=== PATIENT | male | born 1950 | race Caucasian/White ===

== ENCOUNTER → 2017-03-31 | Outpatient (CLI) | payer MEDICARE ==
[~2017-03-31] MED LIST: ASPI325T4 PO; COREG PO; GABAPENTIN PO; LISI1TAB7 PO; MELO-184 PO; NORCO; PLAVIX PO; REGADENOSON 0.4 MG/5 ML SYRINGE ONE; SIMVASTATIN PO; TAMS-11 PO; TRAMADOL PO; ZOCOR
== END | disposition home or self-care (01) ==
LOC: CFH 12:07
PROVIDERS: ATTEND Internal Medicine Cardiovascular Disease
DX: I10 Essential (primary) hypertension (principal); I25.10 Atherosclerotic heart disease of native coronary artery without angina pectoris; Z95.5 Presence of coronary angioplasty implant and graft
CPT/HCPCS: 78452; 93017; 93306; A9502; J2785

== ENCOUNTER 2017-04-29 06:48 | Day surgery (SDC) | payer MEDICARE ==
[~2017-04-29] VITALS: Ht 167.6 cm; Wt 97.9 kg
[~2017-04-29 06:48] MED LIST changes: +ASPI325T17 PO; -ASPI325T4 PO; -MELO-184 PO; +MELO15TA24 PO; -REGADENOSON 0.4 MG/5 ML SYRINGE ONE
[2017-04-29] MEDS ORDERED: ASPI-496 PO (07:24)
[2017-04-29] MEDS ORDERED: CARI250T PO (07:24)
[2017-04-29] MEDS ORDERED: HYDR-3240 PO (07:24)
[2017-04-29 07:25] VITALS: BP 138/79
[2017-04-29] MEDS: LACTATED RINGERS 1,000 ML IV SCH ×2 (07:49→07:50)
[2017-04-29 08:07] LABS: ASPARTATE AMINO TRANSFERASE 21 U/L (15-37); BLOOD UREA NITROGEN 23 mg/dL (7-18)
[2017-04-29] MEDS ORDERED: MIDAZOLAM 1 MG/ML, 2ML ONE (09:26)
[2017-04-29] MEDS ORDERED: FENTANYL PF 100 MCG/2ML ONE (09:27)
[2017-04-29] MEDS ORDERED: PHENYLEPHRINE 10 MG/ML ONE (09:30)
[2017-04-29] MEDS ORDERED: ONDANSETRON 2MG/ML, 2ML ONE (09:30)
[2017-04-29] MEDS ORDERED: GLYCOPYRROLATE 0.2MG/1ML ONE (09:30)
[2017-04-29] MEDS ORDERED: PROPOFOL 10 MG/ML, 20ML ONE (09:30)
[2017-04-29] MEDS ORDERED: SUCCINYLCHOLINE 20 MG/ML, 10ML ONE (09:30)
[2017-04-29] MEDS ORDERED: ROCURONIUM 10 MG/ML ONE (09:30)
[2017-04-29] MEDS ORDERED: hydrALAzine 20 MG/ML, 1ML IV PRN (10:00)
[2017-04-29] MEDS ORDERED: ALBUTEROL/IPRATROPIUM 2.5MG/0.5MG, 3 ML NPPB PRN (10:00)
[2017-04-29] MEDS ORDERED: MEPERIDINE/PF 25MG/0.5ML IVPush PRN (10:00)
[2017-04-29] MEDS ORDERED: MIDAZOLAM 1 MG/ML, 2ML IV PRN (10:00)
[2017-04-29] MEDS ORDERED: PROMETHAZINE 25 MG/ML, 1ML IV PRN (10:00)
[2017-04-29] MEDS ORDERED: HYDROmorphone 1 MG/ML, 1ML IV PRN (10:00)
[2017-04-29] MEDS ORDERED: ACETAMINOPHEN 325 MG TABLET PO PRN (10:00)
[2017-04-29] MEDS ORDERED: ONDANSETRON 2MG/ML, 2ML IVPush PRN (10:00)
[2017-04-29] MEDS ORDERED: OXYcodone 5 MG/5 ML ORAL.SOL UDC PO PRN (10:00)
[2017-04-29] MEDS ORDERED: LABETALOL 5MG/ML, 20ML IV PRN (10:00)
[2017-04-29] MEDS ORDERED: FENTANYL PF 100 MCG/2ML IV PRN (10:00)
== END 2017-04-29 13:15 ==
LOC: OUT 06:48
PROVIDERS: ATTEND Internal Medicine Geriatric Medicine
DX: D13.2 Benign neoplasm of duodenum (principal); K31.7 Polyp of stomach and duodenum; K31.89 Other diseases of stomach and duodenum; I25.10 Atherosclerotic heart disease of native coronary artery without angina pectoris; I10 Essential (primary) hypertension; E78.5 Hyperlipidemia, unspecified; N40.0 Benign prostatic hyperplasia without lower urinary tract symptoms
CPT/HCPCS: 36415; 43239; 43251; 43259; 80053; 88304; 88305; 93005; J0330; J2250; J2370; J2405; J2704; J3010; J7120; J3490

== ENCOUNTER → 2017-05-08 | Outpatient (CLI) | payer MEDICARE ==
[~2017-05-08] MED LIST changes: +ASPI-496 PO; +CARI250T PO; +HYDR-3240 PO; +OMNIPAQUE 350 MG/ML, 100ML BOTTLE ONE
== END | disposition home or self-care (01) ==
LOC: CFH 11:08
PROVIDERS: ATTEND Internal Medicine Geriatric Medicine
DX: D12.6 Benign neoplasm of colon, unspecified (principal); K86.89 Other specified diseases of pancreas
CPT/HCPCS: 74170; Q9967

== ENCOUNTER 2017-07-29 11:37 | Day surgery (SDC) | payer MEDICARE ==
[~2017-07-29] VITALS: Ht 167.6 cm; Wt 97.4 kg
[~2017-07-29 11:37] MED LIST changes: +BACITRACIN OINT 500U/GM, 15 GM ONE; +EPINEPHRINE 1 MG/ML, 1ML ONE; +EPINEPHRINE TOPICAL SOLN 1 MG/ML, 30ML ONE; +FLUORESCEIN OPHTHALMIC 1 MG STRIP ONE; -OMNIPAQUE 350 MG/ML, 100ML BOTTLE ONE; +OXYMETAZOLINE NASAL SPRAY 0.05%, 15ML ONE
[2017-07-29] MEDS ORDERED: LACTATED RINGERS 1,000 ML IV SCH (12:18)
[2017-07-29 12:23] VITALS: BP 171/93
[2017-07-29] MEDS ORDERED: CARV25TA12 PO (12:29)
[2017-07-29] MEDS ORDERED: GABA600T2 PO (12:29)
[2017-07-29] MEDS ORDERED: CLOP75TA52 PO (12:29)
[2017-07-29] MEDS ORDERED: TRAM50TA2 PO (12:29)
[2017-07-29] MEDS ORDERED: SIMV40TA3 PO (12:29)
[2017-07-29] MEDS ORDERED: PLEASE ENTER HEIGHT AND WEIGHT MC SCH (12:30)
[2017-07-29 13:01] LABS: ASPARTATE AMINO TRANSFERASE 21 U/L (15-37); BLOOD UREA NITROGEN 19 mg/dL (7-18)
[2017-07-29] MEDS ORDERED: PROPOFOL 10 MG/ML, 20ML ONE (14:09)
[2017-07-29] MEDS ORDERED: MIDAZOLAM 1 MG/ML, 2ML ONE (14:09)
[2017-07-29] MEDS ORDERED: METOPROLOL 1 MG/ML, 5ML IV PRN (14:30)
[2017-07-29] MEDS ORDERED: OXYcodone 5 MG/5 ML ORAL.SOL UDC PO PRN (14:30)
[2017-07-29] MEDS ORDERED: LABETALOL 5MG/ML, 20ML IV PRN (14:30)
[2017-07-29] MEDS ORDERED: PROMETHAZINE 25 MG/ML, 1ML IV PRN (14:30)
[2017-07-29] MEDS ORDERED: HYDROcodone/APAP 7.5-325MG/15ML UDC PO PRN (14:30)
[2017-07-29] MEDS ORDERED: MEPERIDINE/PF 25MG/0.5ML IVPush PRN (14:30)
[2017-07-29] MEDS ORDERED: ONDANSETRON 2MG/ML, 2ML IVPush PRN (14:30)
[2017-07-29] MEDS ORDERED: hydrALAzine 20 MG/ML, 1ML IV PRN (14:30)
[2017-07-29] MEDS ORDERED: HYDROmorphone 1 MG/ML, 1ML IV PRN (14:30)
[2017-07-29] MEDS ORDERED: MIDAZOLAM 1 MG/ML, 2ML IV PRN (14:30)
[2017-07-29] MEDS ORDERED: EPHEDRINE 50 MG/ML, 1ML IVPush PRN (14:30)
[2017-07-29] MEDS ORDERED: FENTANYL PF 100 MCG/2ML IV PRN (14:30)
[2017-07-29] MEDS ORDERED: METOCLOPRAMIDE 5 MG/ML, 2ML IV PRN (14:30)
[2017-07-29] MEDS ORDERED: ACETAMINOPHEN 325 MG TABLET PO PRN (14:30)
[2017-07-29] MEDS ORDERED: ALBUTEROL SULFATE 2.5 MG/3 ML NPPB PRN (14:30)
== END 2017-07-29 16:45 ==
LOC: OUT 11:37
PROVIDERS: ATTEND Internal Medicine Geriatric Medicine
DX: D13.6 Benign neoplasm of pancreas (principal); I25.2 Old myocardial infarction; I10 Essential (primary) hypertension
CPT/HCPCS: 36415; 43275; 43278; 74328; 80053; 88305; C1769; J2250; J2704; J7120; J0171

== ENCOUNTER 2017-10-14 06:51 | Day surgery (SDC) | payer MEDICARE ==
[~2017-10-14] VITALS: Ht 167.6 cm; Wt 97.7 kg
[~2017-10-14 06:51] MED LIST changes: -BACITRACIN OINT 500U/GM, 15 GM ONE; +CARV25TA12 PO; +CLOP75TA52 PO; -EPINEPHRINE 1 MG/ML, 1ML ONE; -EPINEPHRINE TOPICAL SOLN 1 MG/ML, 30ML ONE; -FLUORESCEIN OPHTHALMIC 1 MG STRIP ONE; +GABA600T2 PO; -OXYMETAZOLINE NASAL SPRAY 0.05%, 15ML ONE; +SIMV40TA3 PO; +TRAM50TA2 PO
[2017-10-14 07:52] VITALS: BP 145/87
[2017-10-14] MEDS ORDERED: LACTATED RINGERS 1,000 ML IV SCH (07:57)
[2017-10-14] MEDS ORDERED: HYDR-882 PO (08:00)
[2017-10-14] MEDS ORDERED: LIDOCAINE 1%, 2ML SQ PRN (08:00)
[2017-10-14] MEDS ORDERED: LIDOCAINE-MPF 1%, 2ML ONE (08:04)
[2017-10-14] MEDS ORDERED: DEXL60CA2 PO (08:22)
[2017-10-14] MEDS ORDERED: PROPOFOL 10 MG/ML, 20ML ONE ×3 (08:56→09:06)
[2017-10-14] MEDS ORDERED: LIDOCAINE-MPF 2% ,5ML ONE (08:56)
[2017-10-14] MEDS ORDERED: FENTANYL PF 100 MCG/2ML IV PRN (09:00)
[2017-10-14] MEDS ORDERED: HYDROcodone/APAP 7.5-325MG/15ML UDC PO PRN (09:00)
[2017-10-14] MEDS ORDERED: OXYcodone 5 MG/5 ML ORAL.SOL UDC PO PRN (09:00)
[2017-10-14] MEDS ORDERED: ONDANSETRON 2MG/ML, 2ML IVPush PRN (09:00)
[2017-10-14] MEDS ORDERED: MEPERIDINE/PF 25MG/0.5ML IVPush PRN (09:00)
[2017-10-14] MEDS ORDERED: morphine SULFATE 10 MG/ML, 1ML IV PRN (09:00)
== END 2017-10-14 11:10 ==
LOC: OUT 06:51
PROVIDERS: ATTEND Internal Medicine
DX: K83.8 Other specified diseases of biliary tract (principal); I25.10 Atherosclerotic heart disease of native coronary artery without angina pectoris; I25.2 Old myocardial infarction; Z98.61 Coronary angioplasty status; Z90.49 Acquired absence of other specified parts of digestive tract; Z80.0 Family history of malignant neoplasm of digestive organs
CPT/HCPCS: 43239; 43259; 88305; 93005; J2704; J3490; J7120

== ENCOUNTER 2018-01-14 01:26 | Observation (INO) | payer MEDICARE ==
[~2018-01-14] VITALS: Ht 167.6 cm; Wt 99.4 kg
[~2018-01-14 01:26] MED LIST changes: +DEXL60CA2 PO; +HYDR-882 PO
[2018-01-14] MEDS ORDERED: LABETALOL 5MG/ML, 20ML ONE (01:49)
[2018-01-14] MEDS ORDERED: NITROGLYCERIN OINT 2%, 1GM TP ONE ×2 (01:49→02:00)
[2018-01-14] MEDS ORDERED: MORPHINE SULFATE 4 MG/ML, 1ML ONE (01:49)
[2018-01-14] MEDS: LABETALOL 5MG/ML, 20ML IVPush ONE ×2 (01:51→02:00)
[2018-01-14] MEDS ORDERED: SODIUM CHLORIDE FLUSH 10ML SYR IVF ONE (02:00)
[2018-01-14] MEDS ORDERED: hydrALAzine 20 MG/ML, 1ML IV ONE (02:00)
[2018-01-14] MEDS ORDERED: MORPHINE SULFATE 4 MG/ML, 1ML IVPush PRN (02:00)
[2018-01-14] MEDS ORDERED: hydrALAzine 20 MG/ML, 1ML ONE (02:00)
[2018-01-14 02:06] LABS: BASOPHILS # (AUTO) 0.03 x10^3/uL (0-0.1); BASOPHILS % (AUTO) 1 % (0-1); EOSINOPHILS # (AUTO) 0.22 x10^3/uL (0-0.4); EOSINOPHILS % (AUTO) 3 % (1-7); LYMPHOCYTES # (AUTO) 2.18 x10^3/uL (1-3.4); LYMPHOCYTES % (AUTO) 31 % (22-44); MD NO; MEAN CORPUSCULAR HEMOGLOBIN 29.2 pg (27.5-34.5); MEAN CORPUSCULAR HGB CONC 34.3 g/dL (33.2-36.2); MEAN CORPUSCULAR VOLUME 85.2 fL (81-97); MEAN PLATELET VOLUME 9.4 fL (7.4-10.4); MONOCYTES # (AUTO) 0.66 x10^3/uL (0.2-0.8); MONOCYTES % (AUTO) 10 % (2-9); NEUTROPHILS # (AUTO) 3.87 x10^3/uL (1.8-6.8); NEUTROPHILS % (AUTO) 56 % (42-75); PLATELET COUNT 190 x10^3/uL (130-400); RED BLOOD COUNT 5.64 x10^6/uL (4.38-5.82); RED CELL DISTRIBUTION WIDTH 12.9 % (9.4-14.8)
[2018-01-14 02:11] LABS: INTERNATIONAL NORMALIZED RATIO 0.97 (0.93-1.1); PROTHROMBIN TIME 10.1 Seconds (9.6-11.5)
[2018-01-14 02:15] LABS: ALBUMIN 4.1 g/dL (3.4-5.0); ANION GAP 8 mmol/L (5-15); CALCIUM 10.4 mg/dL (8.5-10.1); CHLORIDE 100 mmol/L (98-107); CREATININE 1.33 mg/dL (0.7-1.3)
[2018-01-14 02:18] LABS: TROPONIN I < 0.015 ng/mL (0.000-0.045)
[2018-01-14 03:55] VITALS: BP 163/72
[2018-01-14] MEDS ORDERED: HYDROcodone/APAP 5/325 TABLET PO PRN (04:00)
[2018-01-14] MEDS ORDERED: NITROGLYCERIN 0.4 MG/SPRAY SL PRN (04:00)
[2018-01-14] MEDS ORDERED: ZOLPIDEM 5MG TABLET PO PRN (04:00)
[2018-01-14] MEDS ORDERED: LABETALOL 5MG/ML, 20ML IVPush PRN (04:00)
[2018-01-14] MEDS ORDERED: NITROGLYCERIN 0.4 MG BOTTLE (25 TABS) SL PRN (04:00)
[2018-01-14] MEDS ORDERED: hydrALAzine 20 MG/ML, 1ML IVPush PRN (04:00)
[2018-01-14 04:03] VITALS: BP 163/72
[2018-01-14] MEDS ORDERED: TEMPLATE NON-FORMULARY MED. (Carisoprodol** (Soma**) 250 MG) PO SCH (04:30)
[2018-01-14] MEDS ORDERED: CARISOPRODOL MC SCH (04:30)
[2018-01-14 08:22] LABS: TROPONIN I 0.025 ng/mL (0.000-0.045)
[2018-01-14 08:42] VITALS: BP 126/71
[2018-01-14] MEDS ORDERED: ASPIRIN 81 MG TABLET EC PO SCH (09:00)
[2018-01-14] MEDS ORDERED: HYDROCHLOROTHIAZIDE 25 MG TABLET PO SCH ×3 (09:00→09:25)
[2018-01-14] MEDS ORDERED: CLOPIDOGREL 75 MG TABLET PO SCH (09:00)
[2018-01-14] MEDS ORDERED: TAMSULOSIN 0.4 MG CAP.ER.24H PO SCH (09:00)
[2018-01-14] MEDS ORDERED: LISINOPRIL 20 MG TABLET PO SCH ×2 (09:00)
[2018-01-14] MEDS: GABAPENTIN 300 MG CAPSULE PO SCH ×2 (10:22→16:04)
[2018-01-14] MEDS ORDERED: REGADENOSON 0.4 MG/5 ML SYRINGE ONE (14:30)
[2018-01-14 16:13] VITALS: BP 158/76
[2018-01-14] MEDS ORDERED: CARVEDILOL 25 MG TABLET PO SCH (18:00)
[2018-01-14] MEDS ORDERED: PNEUMOCOCCAL 23 VACCINE IM-VACC ONE (19:00)
[2018-01-14] MEDS ORDERED: SIMVASTATIN 40 MG TABLET PO SCH (21:00)
[2018-01-14] MEDS ORDERED: CARISOPRODOL PO PRN (21:00)
== END 2018-01-14 19:40 | disposition home or self-care (01) ==
LOC: ED 02:55 → EDIP 02:56 → INTOOBSV 02:56 → 5SO 03:52
PROVIDERS: ADMIT Family Medicine; ATTEND Family Medicine
DX: R07.89 Other chest pain (principal); I16.0 Hypertensive urgency; I25.10 Atherosclerotic heart disease of native coronary artery without angina pectoris; E78.5 Hyperlipidemia, unspecified; N40.0 Benign prostatic hyperplasia without lower urinary tract symptoms; M51.9 Unspecified thoracic, thoracolumbar and lumbosacral intervertebral disc disorder; I11.0 Hypertensive heart disease with heart failure; I50.9 Heart failure, unspecified; E10.9 Type 1 diabetes mellitus without complications; I25.2 Old myocardial infarction; J44.9 Chronic obstructive pulmonary disease, unspecified; Z95.5 Presence of coronary angioplasty implant and graft; Z86.010 Personal history of colon polyps; Z23 Encounter for immunization
CPT/HCPCS: 36415; 71045; 78452; 80048; 82040; 83880; 84443; 84484; 85025; 85610; 85730; 90732; 93005; 93017; 96374; 96375; 99285; A9502; C9898; G0009; G0378; J0360; J2785

== ENCOUNTER 2018-04-07 08:01 | Day surgery (SDC) | payer MEDICARE ==
[~2018-04-07] VITALS: Ht 167.6 cm; Wt 98.1 kg
[2018-04-07 08:52] VITALS: BP 161/72
[2018-04-07] MEDS ORDERED: LACTATED RINGERS 1,000 ML IV SCH (09:11)
[2018-04-07] MEDS ORDERED: FENTANYL PF 100 MCG/2ML ONE ×3 (10:01→10:11)
[2018-04-07] MEDS ORDERED: MIDAZOLAM 1 MG/ML, 2ML ONE ×2 (10:01→10:11)
[2018-04-07] MEDS ORDERED: PROPOFOL 50 ML ONE (10:11)
[2018-04-07] MEDS ORDERED: KETAMINE 10 MG/ML, 20ML ONE (10:33)
[2018-04-07] MEDS ORDERED: ONDANSETRON 2MG/ML, 2ML ONE (10:45)
[2018-04-07] MEDS ORDERED: DEXAMETHASONE 4 MG/ML, 1ML ONE ×2 (10:45)
[2018-04-07] MEDS ORDERED: LABETALOL 5MG/ML, 20ML ONE (10:47)
[2018-04-07] MEDS ORDERED: ACETAMINOPHEN 325 MG TABLET PO PRN (11:00)
[2018-04-07] MEDS ORDERED: HALOPERIDOL 5 MG/ML IV PRN (11:00)
[2018-04-07] MEDS ORDERED: OXYcodone 5 MG/5 ML ORAL.SOL UDC PO PRN (11:00)
[2018-04-07] MEDS ORDERED: MEPERIDINE/PF 25MG/0.5ML IVPush PRN (11:00)
[2018-04-07] MEDS ORDERED: HYDROmorphone 1 MG/ML, 1ML IV PRN (11:00)
[2018-04-07] MEDS ORDERED: FENTANYL PF 100 MCG/2ML IV PRN (11:00)
[2018-04-07] MEDS ORDERED: hydrALAzine 20 MG/ML, 1ML IV PRN (11:00)
[2018-04-07] MEDS ORDERED: LABETALOL 5MG/ML, 20ML IV PRN (11:00)
== END 2018-04-07 12:30 | disposition home or self-care (01) ==
LOC: OUT 08:01
PROVIDERS: ATTEND Internal Medicine Geriatric Medicine
DX: K22.8 Other specified diseases of esophagus (principal); K31.89 Other diseases of stomach and duodenum; K21.9 Gastro-esophageal reflux disease without esophagitis; E78.5 Hyperlipidemia, unspecified; I25.2 Old myocardial infarction; I25.10 Atherosclerotic heart disease of native coronary artery without angina pectoris; J44.9 Chronic obstructive pulmonary disease, unspecified; I11.0 Hypertensive heart disease with heart failure; I50.9 Heart failure, unspecified; E11.9 Type 2 diabetes mellitus without complications; Z98.890 Other specified postprocedural states; Z85.89 Personal history of malignant neoplasm of other organs and systems; Z79.82 Long term (current) use of aspirin; Z79.899 Other long term (current) drug therapy; Z86.010 Personal history of colon polyps; Z95.5 Presence of coronary angioplasty implant and graft; Z87.39 Personal history of other diseases of the musculoskeletal system and connective tissue
CPT/HCPCS: 43239; 88305; J1100; J2250; J2405; J2704; J3010; J7120

== ENCOUNTER 2018-10-22 02:08 | Emergency (ER) | payer MEDICARE ==
[~2018-10-22] VITALS: Ht 167.6 cm; Wt 99.0 kg
[~2018-10-22 02:08] MED LIST changes: -GABA600T2 PO; +GABA600T7 PO; +HYDR-3653 PO; -HYDR-882 PO
--- NOTE | 2018-10-22 02:31 | NUR ---
PT STATES CP STARTING 1999 THIS PM WHILE MOVING AND DOING LIGHT PHYSICAL ACTIVITY. STATES CARDIAC HX AND AN HI W/ STENT. DENIES ANY OTHER MEDICAL CONCERNS TONIGHT. BP OF 207/94 NOTED IN ROOM. AWARE.
[2018-10-22 03:04] LABS: BASOPHILS # (AUTO) 0.06 x10^3/uL (0-0.1); BASOPHILS % (AUTO) 1 % (0-1); EOSINOPHILS # (AUTO) 0.29 x10^3/uL (0-0.4); EOSINOPHILS % (AUTO) 3 % (1-7); LYMPHOCYTES # (AUTO) 1.38 x10^3/uL (1-3.4); LYMPHOCYTES % (AUTO) 16 % (22-44); MD NO; MEAN CORPUSCULAR HEMOGLOBIN 28.9 pg (27.5-34.5); MEAN CORPUSCULAR HGB CONC 33.3 g/dL (33.2-36.2); MEAN CORPUSCULAR VOLUME 86.8 fL (81-97); MEAN PLATELET VOLUME 9.3 fL (7.4-10.4); MONOCYTES # (AUTO) 0.57 x10^3/uL (0.2-0.8); MONOCYTES % (AUTO) 7 % (2-9); NEUTROPHILS # (AUTO) 6.14 x10^3/uL (1.8-6.8); NEUTROPHILS % (AUTO) 73 % (42-75); PLATELET COUNT 154 x10^3/uL (130-400); RED BLOOD COUNT 5.46 x10^6/uL (4.38-5.82); RED CELL DISTRIBUTION WIDTH 12.1 % (9.4-14.8)
[2018-10-22 03:05] LABS: ALANINE AMINOTRANSFERASE 34 U/L (12-78); ANION GAP 6 mmol/L (5-15); CALCIUM 9.7 mg/dL (8.5-10.1); CHLORIDE 105 mmol/L (98-107); CREATININE 1.15 mg/dL (0.7-1.3)
[2018-10-22 03:09] LABS: ALKALINE PHOSPHATASE 60 U/L (45-117); BILIRUBIN,TOTAL 0.6 mg/dL (0.2-1.0); TROPONIN I < 0.015 ng/mL (0.000-0.045)
--- NOTE | 2018-10-22 03:24 | NUR ---
ALL RESULTS BACK. PT UP FOR RECHECK. NO IMMEDIATE NEEDS FROM PT.
[2018-10-22] MEDS ORDERED: HYDROcodone/APAP 5/325 TABLET ONE (04:00)
[2018-10-22] MEDS ORDERED: HYDROcodone/APAP 5/325 TABLET PO ONE (04:00)
[2018-10-22 04:02] VITALS: BP 199/103
== END 2018-10-22 05:05 | disposition home or self-care (01) ==
LOC: ED 03:28
DX: R07.89 Other chest pain (principal); I11.9 Hypertensive heart disease without heart failure; I25.10 Atherosclerotic heart disease of native coronary artery without angina pectoris
CPT/HCPCS: 36415; 71045; 80053; 83690; 84484; 85025; 93005; 99284

== ENCOUNTER 2021-02-10 09:12 | Emergency (ER) | payer MEDICARE ==
[~2021-02-10] VITALS: Ht 180.3 cm; Wt 108.0 kg
[~2021-02-10 09:12] MED LIST changes: +HYDR-2214 PO; -HYDR-3240 PO; +LISI1TAB20 PO; -LISI1TAB7 PO; +SIMV40TA20 PO; -SIMV40TA3 PO
--- NOTE | 2021-02-10 09:14 | NUR ---
PLEASANT GENTLEMAN GRACE REM AFTER HAVING AN ABNORMAL EKG AT [facility] THIS MORNING. PT WAS REPORTEDLY FEELING DIZZY AND NEAR SYNCOPAL X 2 DAYS AND FELT THOUGH HE NEEDED TO BE CHECKED OUT AT . UPON ARRIVAL TO [facility] ED, PT ATTACHED TO UNIT CONTROLLER AND VS MONITORS. EKG PERFORMED AT . PT EDUCATED ON ER PROCESS AND VERBALIZES UNDERSTANDING. PT HAS CALL LIGHT WITHIN REACH AND DENIES ANY NEEDS AT THIS TIME. AWAITING ERP FOR PT HISTORY AND ASSESSMENT.
[2021-02-10] MEDS ORDERED: SODIUM CHLORIDE FLUSH 10ML SYR IVF ONE (09:30)
[2021-02-10] MEDS ORDERED: APIXABAN 5 MG TABLET PO ONE (09:30)
[2021-02-10] MEDS ORDERED: METOPROLOL 1 MG/ML, 5ML IVPush ONE (09:30)
[2021-02-10 09:37] LABS: BASOPHILS % (AUTO) 0 % (0-1); EOSINOPHILS % (AUTO) 1 % (1-7); LYMPHOCYTES % (AUTO) 12 % (22-44); MEAN CORPUSCULAR HEMOGLOBIN 29.6 pg (27.5-34.5); MEAN CORPUSCULAR HGB CONC 34.3 g/dL (33.2-36.2); MEAN PLATELET VOLUME 9.5 fL (7.4-10.4); MONOCYTES % (AUTO) 6 % (2-9); NEUTROPHILS % (AUTO) 81 % (42-75); PLATELET COUNT 184 x10^3/uL (130-400); RED BLOOD COUNT 6.01 x10^6/uL (4.38-5.82); RED CELL DISTRIBUTION WIDTH 12.6 % (9.4-14.8)
[2021-02-10] MEDS ORDERED: METOPROLOL 1 MG/ML, 5ML ONE (09:47)
[2021-02-10] MEDS ORDERED: APIXABAN 5 MG TABLET ONE (09:47)
[2021-02-10 09:49] LABS: ALBUMIN 3.7 g/dL (3.4-5.0); ANION GAP 11 mmol/L (5-15); CALCIUM 10.5 mg/dL (8.5-10.1); CHLORIDE 101 mmol/L (98-107); CREATININE 1.28 mg/dL (0.7-1.3)
--- NOTE | 2021-02-10 09:54 | NUR ---
PT MEDICATED PER MAR AT THIS TIME. VSS.
[2021-02-10] MEDS ORDERED: POTASSIUM CHLORIDE 20 MEQ TAB.ER.PRT PO ONE (10:00)
[2021-02-10] MEDS ORDERED: SODIUM CHLORIDE 0.9%, 500ML IVBOLUS ONE (10:00)
[2021-02-10] MEDS ORDERED: POTASSIUM CHLORIDE 20 MEQ TAB.ER.PRT ONE (10:04)
[2021-02-10 10:50] VITALS: BP 138/86
--- NOTE | 2021-02-10 10:50 | NUR ---
PT D/C WITH D/C SUMMARY AND SCRIPTS. ALL QUESTIONS ANSWERED. PT AMBULATES TO REGISTRATION DESK WITH STEADY GAIT FOR D/C HOME AND DENIES ANY OTHER NEEDS PERTAINING TO THIS VISIT.
== END 2021-02-10 10:54 | disposition home or self-care (01) ==
LOC: ED 10:15
DX: I48.91 Unspecified atrial fibrillation (principal); R11.2 Nausea with vomiting, unspecified; I25.10 Atherosclerotic heart disease of native coronary artery without angina pectoris; I10 Essential (primary) hypertension
CPT/HCPCS: 36415; 80048; 82040; 82330; 83735; 83880; 84443; 85025; 93005; 96361; 96374; 99284; J7040